=== PATIENT | male | born 1970 | race African-American/Black ===

== ENCOUNTER 2025-01-16 00:39 | Emergency (ER) | payer BC ==
[~2025-01-16] VITALS: Ht 172.7 cm; Wt 113.4 kg
[2025-01-16 01:49] LABS: PLATELET COUNT (AUTO) 198 K/uL (150-450); RED BLOOD CELL COUNT(AUTO) 4.98 MIL/uL (4.5-6.0); RED CELL DISTRIBUTION WIDTH 14.0 % (11.5-15.0); WHITE BLOOD COUNT (AUTO) 8.3 K/uL (4.3-11.0)
[2025-01-16 01:56] LABS: APPEARANCE,URINE CLEAR (CLEAR); BLOOD, URINE 3+ Ery/uL (NEGATIVE); LEUKOCYTE ESTERASE ,URINE NEGATIVE (NEGATIVE); NITRITE, URINE NEGATIVE (NEGATIVE); UGLUCOSE NEGATIVE (NEGATIVE)
[2025-01-16 01:59] LABS: ASPARTATE AMINOTRANSFERASE 29.0 U/L (15-37); CALCIUM, SERUM 9.1 mg/dL (8.5-10.1); CREATININE 1.1 mg/dL (0.6-1.3); SODIUM SERUM 142.0 mmol/L (136-145); TOTAL PROTEIN, SERUM 7.6 g/dL (6.4-8.2); UREA NITROGEN, BLOOD 13.0 mg/dL (7-18)
[2025-01-16 02:03] LABS: ADD URINE CULTURE NO; SQUAMOUS EPITHELIAL CELL,UR Few /HPF (None Seen)
[2025-01-16 02:20] LABS: AMPHETAMINE, URINE NEGATIVE (NEGATIVE); BARBITURATE, URINE NEGATIVE (NEGATIVE); BENZODIAZEPINE, URINE NEGATIVE (NEGATIVE); CANNABINOID, URINE NEGATIVE (NEGATIVE); COCCAINE, URINE NEGATIVE (NEGATIVE); OPIATE, URINE NEGATIVE (NEGATIVE)
[2025-01-16] MEDS ORDERED: HYDROMORPHONE 1 MG/1 ML DISP.SYRIN ONE (02:37)
[2025-01-16] MEDS ORDERED: PANTOPRAZOLE 40 MG VIAL ONE (02:37)
[2025-01-16] MEDS ORDERED: ONDANSETRON HCL/PF 4 MG/2 ML VIAL ONE (02:37)
[2025-01-16] MEDS: HYDROMORPHONE 1 MG/1 ML DISP.SYRIN IV ONE (02:46)
[2025-01-16] MEDS: ONDANSETRON HCL/PF - ER 4 MG/2 ML VIAL IV ONE (02:46)
[2025-01-16] MEDS: PANTOPRAZOLE 40 MG VIAL IV ONE (02:46)
[2025-01-16] MEDS ORDERED: IOHEXOL-300 100 ML VIAL IV ONE (02:51)
[2025-01-16] MEDS ORDERED: IV NS 0.9% 250 ML IV ONE (02:52)
[2025-01-16] MEDS ORDERED: TAMS-12 PO (05:19)
[2025-01-16] MEDS ORDERED: KETO10TA2 PO (05:19)
[2025-01-16 05:33] VITALS: BP 165/89; TEMP 98; O2SAT 95
== END 2025-01-16 05:33 | disposition home or self-care (01) ==
LOC: ER 00:46
DX: N13.2 Hydronephrosis with renal and ureteral calculous obstruction (principal); I10 Essential (primary) hypertension; R11.2 Nausea with vomiting, unspecified; Z91.011 Allergy to milk products; Z79.899 Other long term (current) drug therapy
CPT/HCPCS: 99285; 74177; 96374; 96375; 85025; 87040; 83690; 36415; 80053; 80307; 81001; J2405 ×2; J7050; J2470; Q9967; J1171